=== PATIENT | male | born 1950 | race Caucasian/White ===

== ENCOUNTER → 2017-03-27 | Outpatient (CLI) | payer OTHER, MEDICARE ==
[~2017-03-27] MED LIST: ALLO300T PO; ASPI-496 PO; CETI10CA PO; LISI-170 PO
[2017-03-27 15:52] LABS: ASPARTATE AMINO TRANSFERASE 26 U/L (15-37); BLOOD UREA NITROGEN 16 mg/dL (7-18)
== END | disposition home or self-care (01) ==
LOC: STAR 14:37
PROVIDERS: ATTEND Otolaryngology Facial Plastic Surgery
DX: Z01.818 Encounter for other preprocedural examination (principal); M47.894 Other spondylosis, thoracic region; J34.3 Hypertrophy of nasal turbinates; J34.2 Deviated nasal septum; G47.33 Obstructive sleep apnea (adult) (pediatric); J34.89 Other specified disorders of nose and nasal sinuses
CPT/HCPCS: 36415; 71020; 80053; 85025; 93005

== ENCOUNTER 2017-03-31 07:34 | Day surgery (SDC) | payer OTHER, MEDICARE ==
[~2017-03-31] VITALS: Ht 182.9 cm; Wt 151.0 kg
[~2017-03-31 07:34] MED LIST changes: +COCAINE TOPICAL SOLN 4%, 4ML ONE; +LIDOCAINE/PF 1%-EPI 1:200K, 30ML ONE; +MUPIROCIN OINT 2%, 22GM ONE; +OXYMETAZOLINE NASAL SPRAY 0.05%, 15ML ONE
[2017-03-31] MEDS ORDERED: LACTATED RINGERS 1,000 ML IV SCH (08:17)
[2017-03-31 08:41] VITALS: BP 134/88
[2017-03-31] MEDS ORDERED: FENTANYL PF 250 MCG/5ML ONE (08:48)
[2017-03-31] MEDS ORDERED: PROPOFOL 10 MG/ML, 20ML ONE (09:23)
[2017-03-31] MEDS ORDERED: PHENYLEPHRINE 10 MG/ML ONE (09:23)
[2017-03-31] MEDS ORDERED: ONDANSETRON 2MG/ML, 2ML ONE (09:23)
[2017-03-31] MEDS ORDERED: SUCCINYLCHOLINE 20 MG/ML, 10ML ONE (09:23)
[2017-03-31] MEDS ORDERED: DEXAMETHASONE 4 MG/ML, 1ML ONE (09:23)
[2017-03-31] MEDS ORDERED: VASOPRESSIN 20 UNIT/ML, 1ML ONE (09:23)
[2017-03-31] MEDS ORDERED: EPHEDRINE 50 MG/ML, 1ML ONE (09:23)
[2017-03-31] MEDS ORDERED: CEFAZOLIN 1,000 MG ONE (09:23)
[2017-03-31] MEDS ORDERED: METOPROLOL 1 MG/ML, 5ML IV PRN (10:30)
[2017-03-31] MEDS ORDERED: FENTANYL PF 100 MCG/2ML IV PRN (10:30)
[2017-03-31] MEDS ORDERED: ACETAMINOPHEN 325 MG TABLET PO PRN (10:30)
[2017-03-31] MEDS ORDERED: hydrALAzine 20 MG/ML, 1ML IV PRN (10:30)
[2017-03-31] MEDS ORDERED: ALBUTEROL/IPRATROPIUM 2.5MG/0.5MG, 3 ML NPPB PRN (10:30)
[2017-03-31] MEDS ORDERED: HYDROmorphone 1 MG/ML, 1ML IV PRN (10:30)
[2017-03-31] MEDS ORDERED: OXYcodone 5 MG/5 ML ORAL.SOL UDC PO PRN (10:30)
[2017-03-31] MEDS ORDERED: MEPERIDINE/PF 25MG/0.5ML IVPush PRN (10:30)
== END 2017-03-31 17:35 | disposition home or self-care (01) ==
LOC: OUT 07:34
PROVIDERS: ATTEND Otolaryngology Facial Plastic Surgery
DX: J34.2 Deviated nasal septum (principal); J34.3 Hypertrophy of nasal turbinates; J34.89 Other specified disorders of nose and nasal sinuses; I10 Essential (primary) hypertension; G47.33 Obstructive sleep apnea (adult) (pediatric); E66.01 Morbid (severe) obesity due to excess calories; Z68.42 Body mass index [BMI] 45.0-49.9, adult; M10.9 Gout, unspecified
CPT/HCPCS: 30140; 30465; 30520; J0330; J0690; J1100; J2370; J2405; J2704; J3010; J3490; J7120